=== PATIENT | female | born 1970 | race Caucasian/White ===

== ENCOUNTER → 2017-11-12 | Outpatient (CLI) | payer BC ==
--- NOTE | 2017-11-14 08:45 | MM ---
Reason for exam: screening (asymptomatic). Last mammogram was performed 10 years and 10 months ago. Physical Findings: A clinical breast exam by your physician is recommended on an annual basis and results should be correlated with mammographic findings. MG 3D Screening Mammo W/Cad Bilateral CC and MLO view(s) were taken. Prior study comparison: January 22, 2007, right diagnostic mammogram w/CAD. June 20, 2006, workup right diagnostic mammogram. There are scattered fibroglandular densities. There are three groups of right calcifications and other scattered calcifications. First 12 o'clock measuring 5mm, second 4 o'clock anterior depth 2mm and third 4:30 middle depth 3mm. These results were verbally communicated with the patient and result sheet given to the patient on 11/12/17. ASSESSMENT: Incomplete: need additional imaging evaluation, BI-RAD 0 RECOMMENDATION: Special view mammogram of the right breast. [facility] will attempt to contact patient to return for supplemental views.
== END | disposition home or self-care (01) ==
LOC: RADMAMWWP 12:59
PROVIDERS: ATTEND Family Medicine
DX: Z12.31 Encounter for screening mammogram for malignant neoplasm of breast (principal)
CPT/HCPCS: 77063; 77067

== ENCOUNTER → 2017-11-25 | Outpatient (CLI) | payer BC ==
--- NOTE | 2017-11-25 14:16 | MM ---
Reason for exam: additional evaluation requested from abnormal screening. Last mammogram was performed less than 1 month ago. Physical Findings: Nurse did not find any significant physical abnormalities on exam. MG 3D Work Up W/Cad RT CC with magnification, LM with magnification, and LM view(s) were taken of the right breast. Prior study comparison: November 12, 2017, bilateral MG 3d screening mammo w/cad. January 22, 2007, right diagnostic mammogram w/CAD. The breast tissue is heterogeneously dense. This may lower the sensitivity of mammography. There are two discrete groups of calcifications in the lower inner quadrant at anterior and middle depth. The more posterior is questionably see o the prior. The more anterior are new and biopsy is recommended. Both groups measure 3mm. These results were verbally communicated with the patient and result sheet given to the patient on 11/25/17. ASSESSMENT: Suspicious, BI-RAD 4 RECOMMENDATION: Stereotactic core biopsy of the right breast. Called Dr. Justice with mammographic findings and has scheduled an appointment for the patient for 11/27/17 at 10:[address] Norton. PRELIMINARY REPORT CALLED AND FAXED TO DR. NORTON ON 11/26/17.
== END | disposition home or self-care (01) ==
LOC: RADMAMWWP 12:53
PROVIDERS: ATTEND Family Medicine
DX: R92.8 Other abnormal and inconclusive findings on diagnostic imaging of breast (principal)
CPT/HCPCS: 77061; 77065

== ENCOUNTER → 2017-11-27 | Outpatient (CLI) | payer BC ==
[2017-11-27 10:17] VITALS: BP 105/72; PULSE 78; TEMP 98.2; BMI 28.8
--- NOTE | 2017-11-27 10:39 | P.GSHP ---
History of Present Illness H&P Date: 11/27/17 The patient is a 47-year-old white female who is status post a bilateral mammogram performed on 11/12/2017. Nothing of concern was noted in the left breast however on the right breast additional diagnostic [place]. [place] [id number]. The radiograph revealed the breast tissue was heterogeneously dense with 2 discrete groups of calcifications in the lower inner quadrant at the anterior and middle portion of the right breast. The most posterior group with had been seen on prior films however the more anterior group were new and biopsy was recommended. Both groups measured approximately 3 mm. The patient has not noticed any masses in her breast. She has no nipple discharge or skin changes. She has no pain in her breast. Her last mammogram was approximately 10 years ago. No cyclical changes in breast associated with periods. This was considered suspicious: BIRADS 4 Family History: 1. Paternal grandfather: Prostate cancer Past surgical history: 1. Left arm fracture thrown from a horse multiple surgeries (13 procedures) Past medical history: none Hormonal history: menarche: 12 : 3 pregnancies with one miscarriage 2 live births first full-term at 25, breast-feed positive Menarche: Negative patient has periods on a regular basis with no cyclical changes in her breast associated with her periods Hormones: Negative control pills: 4 years, does not use now social history: Smoke: Negative alcohol: Several glasses of wine a week Drugs: Negative - Constitutional Constitutional: Reports sweats - EENT Eyes: denies blurred vision, denies pain Ears: deny: decreased hearing, tinnitus Ears, nose, mouth and throat: Denies headache, Denies sore throat - Breasts Breasts: bilateral: as per HPI - Cardiovascular Cardiovascular: Denies chest pain, Denies shortness of breath - Respiratory Respiratory: Denies cough, Denies 7 - Gastrointestinal Gastrointestinal: Denies abdominal pain, Denies diarrhea, Denies nausea, Denies vomiting - Genitourinary (Female) Genitourinary: Denies dysuria, Denies hematuria - Menstruation Menstruation: Reports currently menstrual - Genitourinary (Male) Genitourinary: Denies dysuria, Denies hematuria - Musculoskeletal Comment: weakness left arm related to fracture: thrown from a horse Musculoskeletal: Denies myalgias - Integumentary Integumentary: Denies pruritus, Denies rash - Neurological Neurological: Denies numbness, Denies weakness - Psychiatric Psychiatric: Denies anxiety, Denies depression - Endocrine Endocrine: Denies fatigue, Denies weight change - Hematologic/Lymphatic Comment: none - Allergic/Immunologic Allergic/Immunologic: Reports seasonal allergies Surgical - Exam - General well developed, well nourished, no distress - Eyes normal ocular movement - ENT no hearing loss, no congestion - Neck no masses, trachea midline - Respiratory normal respiratory effort, clear to auscultation - Cardiovascular Rhythm: regular Heart Sounds: normal: S1, S2 - Abdomen Abdomen: soft, non tender, no guarding, no rigid, no rebound - Neurologic no disoriented, no combative - Musculoskeletal normal gait, normal posture - Psychiatric oriented to time, oriented to person, oriented to place, speech is normal, memory intact Breast examination: Right breast: Multiple positional exam no dominant masses or nodules of concern Right axilla: No adenopathy of concern Left breast: Multiple positional exam no dominant masses or nodules of concern Left axilla: No adenopathy of concern Results Mammogram results reviewed Assessment and Plan Assessment: Impression/plan: 1. Mammographic abnormality right breast 2. Status post multiple surgeries left forearm Plan: 1. Right breast stereotactic core biopsy Risks and benefits of the procedure were discussed with the patient. These include but are not limited to bleeding, infection, reaction to the anesthetic or inability to identify and sample the area of concern. She wishes to proceed with a stereotactic core biopsy of the right breast. She understands there were several areas of microcalcification and at the time of the procedure we may opt to biopsy more than one of these areas. Cc: Dr. Justice
== END | disposition home or self-care (01) ==
LOC: WWCWWP 09:53
PROVIDERS: ATTEND Surgery
DX: Z53.9 Procedure and treatment not carried out, unspecified reason (principal)

== ENCOUNTER → 2017-12-05 | Day surgery (SDC) | payer BC ==
[2017-12-05 07:18] VITALS: BP 118/74; PULSE 96; RESP 16; TEMP 97.7; BMI 28.8
--- NOTE | 2017-12-05 08:44 | PCN ---
PROCEDURE NOTE The patient is a 47-year-old white female who had a recent mammogram revealing an area of increased microcalcifications in the right breast. There were several areas noted initially but one which had increased and was new. It was recommended she undergo a stereotactic core biopsy of this area. The patient was brought to the stereotactic unit and placed on the table and the area of concern was identified. However, upon identification of the area of concern, there was noted to be a vessel in close proximity. This was reviewed with the radiologist and it was felt that it would be unwise to proceed with a stereo biopsy secondary to the proximity of the vessel. It was also discussed with the radiologist as to how much of concern these calcifications were and it was felt that they should be removed via a needle localization and excision in the operating room. This is discussed with the patient and the patient will be scheduled for needle localization and excisional biopsy in the operating room Please note that the reason for this is that this is not amiable to stereotactic core biopsy secondary to the proximity of a large vessel in the area of the microcalcifications. Additionally, it is felt that these calcifications are worrisome enough to warrant biopsy secondary to the fact that they are new and are felt to be suspicious via Radiology. This will be scheduled in the near future. Risks and benefits will be discussed with the patient. MMODL / IJN: [id number] /
== END ==
LOC: RADMAMWWP 07:04
PROVIDERS: ATTEND Surgery
DX: O28.4 Abnormal radiological finding on antenatal screening of mother (principal); Z88.2 Allergy status to sulfonamides; Z53.8 Procedure and treatment not carried out for other reasons

== ENCOUNTER 2017-12-16 10:37 | Day surgery (SDC) | payer BC ==
[2017-12-12 11:58] VITALS: BMI 28.8
[~2017-12-16 10:37] MED LIST: DEXAMETHASONE SOD PHOSPHATE 10 MG/ML 1 ML VIAL IV ONE; HEPARIN SODIUM,PORCINE 5,000 UNIT/ML 1 ML VIAL SQ ONE; LACTATED RINGERS 1,000 ML IV SCH; LIDOCAINE 1% 20 ML VIAL (10MG/ML) FOR IV START INTRADERMA PRN; MIDAZOLAM 2 MG/2 ML VIAL IV PRN; ONDANSETRON 4 MG/2 ML VIAL IVP ONE; Pre Op ABX Message 1 EACH MISC MISCELLANE ONE; fentaNYL (PF) 50 MCG/ML 2 ML AMP IV PRN
[2017-12-16 10:52] VITALS: RESP 16
[2017-12-16] MEDS ORDERED: ALPRAZolam 0.5 MG TAB PO ONE (10:58)
[2017-12-16] MEDS ORDERED: SODIUM BICARB 4% 5 ML VIAL (0.48 MEQ/ML) MISCELLANE ONE (11:42)
[2017-12-16] MEDS ORDERED: LIDOCAINE 1% INJ 10MG/ML (20 ML MDV) SQ ONE ×2 (11:42→13:02)
[2017-12-16] MEDS ORDERED: HEPARIN SODIUM,PORCINE 5,000 UNIT/ML 1 ML VIAL SQ ONE (12:00)
--- NOTE | 2017-12-16 12:02 | P.PN ---
Progress Note - Text Progress Note Date: 12/16/17 Patient had an attempted stereotactic core biopsy of the right breast. However a large blood vessel was in proximity and therefore after review with radiology was recommended she undergo a needle localization and excision of the area of concern. Therefore she is being scheduled for needle localization and excisional biopsy. She understands risks and benefits and wishes to proceed.
[2017-12-16] MEDS ORDERED: PROPOFOL 10 MG/ML 20 ML VIAL IV ONE (12:35)
[2017-12-16] MEDS ORDERED: MIDAZOLAM 2 MG/2 ML VIAL ONE (12:35)
[2017-12-16] MEDS ORDERED: LIDOCAINE 1% INJ 10MG/ML (20 ML MDV) ONE (12:35)
[2017-12-16] MEDS ORDERED: KETOROLAC 30 MG/ML 1 ML VIAL ONE (12:35)
[2017-12-16] MEDS ORDERED: fentaNYL (PF) 50 MCG/ML 2 ML AMP ONE (12:35)
--- NOTE | 2017-12-16 13:23 | P.OP ---
Date of Procedure: 12/16/17 Preoperative Diagnosis: Mammographic abnormality right breast not able to do stereo biopsy Postoperative Diagnosis: Same Procedure(s) Performed: Needle localization excisional biopsy right breast lesion Anesthesia: RAMSEYA Surgeon: Amy Norton Estimated Blood Loss (ml): 5 IV fluids (ml): 300 Pathology: other Condition: stable Disposition: PACU Indications for Procedure: Mammographic abnormality right breast, attempted stereo biopsy unable to do secondary to proximity of blood vessels therefore recommended she undergo needle local excisional biopsy Operative Findings: Dense breast tissue Description of Procedure: Patient was taken to the operating room and following induction of anesthesia the right breast was prepped and draped in a sterile fashion. Circumareolar incision was made and carried down to the hook of the needle. Surrounding tissue was excised using the Bovie. Following this after assured that hemostasis was attained the specimen was painted for orientation. The specimen was sent for radiographic confirmation the area of concern about removed. The deep tissues were closed using 3-0 Vicryl suture. The skin was closed using 4- 0 Monocryl. The patient tolerated the procedure in stable condition. All instrument and sponge counts were correct at the end of the case. Radiograph of the specimen revealed that the area of concern was removed. Specimen was sent to pathology.
--- NOTE | 2017-12-16 13:24 | P.DS ---
Providers Attending physician: Amy Norton Primary care physician: Dann Justice Plan - Discharge Summary New Discharge Prescriptions: No Action Melatonin 10 mg PO HS PRN PRN Reason: Insomnia Discharge Medication List Melatonin 10 mg PO HS PRN 11/28/17 [History] Follow up Appointment(s)/Referral(s): Amy Norton MD [STAFF PHYSICIAN] - 1 Week Activity/Diet/Wound Care/Special Instructions: Do not drive today Patient may shower after 48 hours Discharge Disposition: HOME SELF-CARE
[2017-12-16 13:48] VITALS: TEMP 97
[2017-12-16 15:23] VITALS: BP 128/80; PULSE 70
--- NOTE | 2017-12-24 09:36 | MM ---
EXAMINATION TYPE: MG pre op needle loc RT, MG surgical specimen RT DATE OF EXAM: 12/16/2017 12:15 PM COMPARISON: NONE HISTORY: Right breast microcalcifications Informed consent was obtained and all the patient's questions were answered. The calcifications in question were localized mammographically. The standard sterile technique was utilized, as well as appropriate local anesthesia with 1% Lidocaine and bicarbonate. Localization needle followed by placement of a guidewire was performed under mammographic guidance. Verification images demonstrate appropriate deployment of the guidewire. The patient tolerated the procedure well and left the department in stable condition. Specimen radiograph demonstrates the calcifications in question to reside within the specimen. IMPRESSION: Successful needle localization and open biopsy right breast with pathology results pending. Pathology Results: Benign RIGHT BREAST, NEEDLE LOCALIZATION: Benign breast parenchyma with fibrocystic spectrum changes including sclerosing adenosis, usual duct hyperplasia, duct cystic changes and focal apocrine metaplasia. Select blocks (A9 and A14) show coarse intraductal mineralizations. Recommendation Follow up mammogram of the right breast in 6 months. DEMARIO
== END 2017-12-16 15:33 | disposition home or self-care (01) ==
LOC: OR 10:37
PROVIDERS: ATTEND Surgery
DX: N60.91 Unspecified benign mammary dysplasia of right breast (principal); R92.1 Mammographic calcification found on diagnostic imaging of breast; Z88.2 Allergy status to sulfonamides
CPT/HCPCS: 19125; 81025; 88307; 76098; 19281; J2250; J1644; J1100; J2405; J2001; J3010; J1885; J2704

== ENCOUNTER → 2017-12-25 | Outpatient (CLI) | payer BC ==
[2017-12-25 12:47] VITALS: BP 127/68; PULSE 72; BMI 28.8
--- NOTE | 2017-12-25 13:01 | P.PN ---
Progress Note - Text Progress Note Date: 12/25/17 The patient is a 47-year-old white female status post needle localization and excisional biopsy of the right breast. Pathology is benign. Patient has no complaints. Physical exam: Incision clean and dry Impression/Plan: 1. Needle localization excisional biopsy benign 2. Repeat right breast mammogram and physician exam in 6 months time CC: Dr. Ksenia Justice
== END ==
LOC: WWCWWP 12:34
PROVIDERS: ATTEND Surgery
DX: Z53.9 Procedure and treatment not carried out, unspecified reason (principal)

== ENCOUNTER → 2020-05-11 | Outpatient (CLI) | payer BC ==
--- NOTE | 2020-05-12 14:59 | MM ---
Reason for exam: screening (asymptomatic). Last mammogram was performed 2 years and 5 months ago. History: Benign MG pre op needle loc RT of the right breast, December 16, 2017. MG discontinued stereo core RT of the right breast, December 05, 2017. Physical Findings: A clinical breast exam by your physician is recommended on an annual basis and results should be correlated with mammographic findings. MG Screening Mammo w CAD Bilateral CC and MLO view(s) were taken. Prior study comparison: November 25, 2017, right breast MG 3d work up w/cad RT. November 12, 2017, bilateral MG 3d screening mammo w/cad. There are scattered fibroglandular densities. Finding #1: Architectural distortion in the lower inner quadrant, anterior, middle position of the right breast consistent with known excision changes. Finding #2: There are typically benign round calcifications in both breasts. There is no discrete abnormality. ASSESSMENT: Benign, BI-RAD 2 RECOMMENDATION: Routine screening mammogram of both breasts in 1 year.
== END | disposition home or self-care (01) ==
LOC: RADMAMWWP 11:36
PROVIDERS: ATTEND Family Medicine
DX: Z12.31 Encounter for screening mammogram for malignant neoplasm of breast (principal)
CPT/HCPCS: 77067

== ENCOUNTER → 2021-03-08 | Outpatient (CLI) | payer BC ==
--- NOTE | 2021-03-08 13:58 | XR ---
EXAMINATION TYPE: XR knee complete LT DATE OF EXAM: 03/08/2021 COMPARISON: None HISTORY: 50-year-old female M25.562, left knee pain TECHNIQUE: 3 views FINDINGS: Tricompartmental degenerative spurring. Moderate knee joint effusion. Extensor mechanism is intact. N o acute fracture, subluxation, or dislocation seen. IMPRESSION: Mild tricompartmental degenerative spurring. There is a moderate knee joint effusion which is nonspec ific. No acute osseous abnormality seen. If pain persists, MRI can be performed.
== END | disposition home or self-care (01) ==
LOC: RADXRMAIN 12:55
PROVIDERS: ATTEND Family Medicine
DX: M76.892 Other specified enthesopathies of left lower limb, excluding foot (principal)

== ENCOUNTER → 2021-09-17 | Outpatient (CLI) | payer BC ==
--- NOTE | 2021-09-19 10:47 | MM ---
Reason for Exam: Screening (asymptomatic). Last mammogram was performed 1 year(s) and 4 month(s) ago. Patient History: Menarche at age 13. First Full-Term at age 24. Postmenopausal. 12/16/2017, Benign Core Biopsy on the right side. 12/05/2017, MG discontinued stereo core RT on the right side. Last menstrual period: 03/14/2020 Risk Values: Melissa 5 year model risk: 1.1%. NCI Lifetime model risk: 9.3%. Film Views: Bilateral CC views were taken. Bilateral MLO views were taken. Prior Study Comparison: 11/12/2017 Bilateral Screening Mammogram, [facility]. 11/25/2017 Right Diagnostic Mammogram, [facility]. 05/11/2020 Bilateral Screening Mammogram, [facility]. Tissue Density: The breast tissue is almost entirely fat. Findings: Analyzed By CAD. Post excisional changes in the right breast. Stable right upper outer quadrant small focal asymmetries. Overall Assessment: Benign, BI-RAD 2 Management: Screening Mammogram of both breasts in 1 year.
== END | disposition home or self-care (01) ==
LOC: RADMAMWWP 15:40
PROVIDERS: ATTEND Family Medicine
DX: Z12.31 Encounter for screening mammogram for malignant neoplasm of breast (principal); Z78.0 Asymptomatic menopausal state
CPT/HCPCS: 77067

== ENCOUNTER → 2023-06-23 | Outpatient (CLI) | payer BC ==
--- NOTE | 2023-06-25 19:58 | MM ---
Reason for Exam: Screening (asymptomatic). Last mammogram was performed 1 year(s) and 9 month(s) ago. Patient History: Menarche at age 13. First Full-Term at age 24. Postmenopausal. 12/16/2017, Benign Core Biopsy on the right side. 12/05/2017, MG discontinued stereo core RT on the right side. Risk Values: Melissa 5 year model risk: 1.2%. NCI Lifetime model risk: 9.0%. Prior Study Comparison: 11/25/2017 Right Diagnostic Mammogram, [facility]. 05/11/2020 Bilateral Screening Mammogram, [facility]. 09/17/2021 Bilateral MG screening mammo w CAD, [facility]. Tissue Density: There are scattered fibroglandular densities. Findings: Analyzed By CAD. Postexcisional changes right breast. There is no suspicious group of microcalcifications or new suspicious mass in either breast. Overall Assessment: Benign, BI-RAD 2 Management: Screening Mammogram of both breasts in 1 year. . Patient should continue monthly self-breast exams. A clinical breast exam by your physician is recommended on an annual basis. This exam should not preclude additional follow-up of suspicious palpable abnormalities. Note on Melissa scores and lifetime risk: 1. A Melissa score greater than 3% is considered moderate risk. If this is the case, consider specialist referral to assess eligibility for a risk reducing agent. 2. If overall lifetime risk for the development of breast cancer is 20% or higher, the patient may qualify for future screening with alternating mammogram and breast MRI. Electronically signed and approved by: Antonio Woods M.D. Radiologist
== END | disposition home or self-care (01) ==
LOC: RADMAMWWP 15:30
PROVIDERS: ATTEND Family Medicine
DX: Z12.31 Encounter for screening mammogram for malignant neoplasm of breast (principal); Z78.0 Asymptomatic menopausal state
CPT/HCPCS: 77063; 77067